=== PATIENT | male | born 1955 | race Caucasian/White ===

== ENCOUNTER → 2019-03-17 | Outpatient (CLI) | payer BC ==
--- NOTE | 2019-03-17 20:53 | CONS ---
CONSULTATION REASON FOR EVALUATION: Sleep apnea. 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 The patient was found to have a increased risk of sleep apnea with a Stop Bang score of 4. For that reason, he was referred to me. Clinically he feels well. No hypersomnia or sleepiness. He has minimal snoring. He goes to bed around 10:30 p.m., wakes up 7:00 am in the morning. No major hypersomnia or sleepiness during the day. He is a smoker. No history of substance abuse. No recent weight gain. No dry mouth. No grinding of the teeth. No restlessness on lower extremities. No issues with memory or concentration. No issues with falling asleep while driving and he has never fallen asleep behind the wheel. No history of any motor vehicle accidents because of feeling drowsy or sleepy. PAST MEDICAL HISTORY: Negative. PAST SURGICAL HISTORY: Appendectomy in 1964. DRUG ALLERGIES: Not known. MEDICATIONS: None. SOCIAL HISTORY: Patient is a smoker 40 pack years. No history of alcohol. No history of IV drugs. FAMILY HISTORY: Negative for sleep apnea. REVIEW OF SYSTEMS: Fourteen-point review of system was done. Positive findings are mentioned above in the history of present illness. Otherwise negative. PHYSICAL EXAMINATION: BP is 144/75, pulse 68, respirations 16, temperature 97.9, saturation 97% on room air. Height is 5 feet, 10 inches, weight is 225, BMI 32.2. Neck size 16.5 inches. General appearance: Calm and comfortable. Head is atraumatic, normocephalic. NECK: Supple. There is no JVD. No goiter or neck masses. Mallampati class 2-3. LUNGS: Clear to auscultation. HEART: Sounds regular rate and rhythm. Normal S1/S2. No murmurs. ABDOMEN: Soft, nontender. No organomegaly. EXTREMITIES: No edema. No cyanosis or clubbing. NEUROLOGIC: The patient alert x3. No focal neurological deficits. PSYCHIATRIC: Negative for anxiety or depression. Skin is negative for any wounds or ulceration. IMPRESSION: 1. Mild snoring. 2. Positive sleep apnea screen with a Stop Bang score of 4. 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 4. Chronic smoker. PLAN: 1. Encourage weight loss. 2. Overall suspicion for obstructive sleep apnea is quite low. The patient is asymptomatic. We will proceed with a home sleep study to rule out obstructive sleep apnea. 3. Further recommendations will be done accordingly. RIGO / PUNEET: [id number] /
== END ==
LOC: SLEEP 14:07
PROVIDERS: ATTEND Internal Medicine Critical Care Medicine
DX: G47.30 Sleep apnea, unspecified (principal); R06.83 Snoring; F17.200 Nicotine dependence, unspecified, uncomplicated
CPT/HCPCS: 99211

== ENCOUNTER → 2019-08-11 | Outpatient (CLI) | payer BC ==
--- NOTE | 2019-08-11 16:30 | PN ---
PROGRESS NOTE This is a 64-year-old male patient coming in for a compliancy check regarding his obstructive sleep apnea. 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 The patient was found to have an AHI of 20, worse in the supine body position with an AHI of 30. Based on that, the patient was given CPAP titration. He was titrated to a CPAP pressure of 10 cm of water. On today's evaluation the patient feels better. His sleep quality is improved. His main complaint is the bills that he has gotten from [facility] regarding the sleep study. For the most part the treatment has been successful. He is utilizing his CPAP machine on average 8 hours and 32 minutes per night. His AHI is down to 0.3. His leak factor is 11.8 L/minute. He is averaging more than 8 hours per night of CPAP use and his CPAP use for more than 4 hours is 97%. On today's evaluation he is using a Mirage FX nose mask. I switched him to an AirFit N30I nose mask, which seems to be much more comfortable, and the patient was sized to a small-sized nose mask. This is something that he would like to use in the future based on the increased comfort level that he experienced with this mask. REVIEW OF SYSTEMS: Fourteen-point review of systems was done. Negative other than things mentioned above. In general he is much more alert and awake during the day. He is responding to the treatment. His Troutdale score is down to 2. No snoring while on CPAP therapy, and his has completely subsided. No nasal dryness. No oral dryness. No leaks from his mouth. No nighttime chest pain, shortness of breath, gasping for air or choking sensation. No morning headaches. No altered mentation. No episodes of falling asleep while driving his truck. PHYSICAL EXAMINATION: CURRENT VITAL SIGNS: His blood pressure is 170/83, pulse 83, respirations 16, temperature 97.0. Saturation is 97% on room air. Troutdale score is 2. Weight is 225. GENERAL APPEARANCE: Calm, comfortable. HEAD: Atraumatic, normocephalic. NECK: Supple. No JVD. No goiter or neck mass. Mallampati class IV. LUNGS: Clear to auscultation. HEART: Heart sounds are regular rate and rhythm. Normal S1, S2. No S3, S4. No murmurs. ABDOMEN: Soft, nontender. No organomegaly. EXTREMITIES: No edema. No cyanosis or clubbing. Neurologically the patient is alert and oriented x3. There are no focal neurological deficits. Psychiatrically, negative for anxiety or depression. IMPRESSION: 1. Obstructive sleep apnea, moderately severe, worse in the supine body position. Current AHI is 20 and the patient is receiving CPAP therapy at a pressure of 10. 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 3. Hypersomnia, improved. Troutdale score is down to 2. PLAN: The patient is benefiting from the treatment. The patient is compliant. Continue CPAP therapy at same level of pressure. Continue using the CPAP. I offered him an AirFit N30I small-sized [id number] mask. Will optimize sleep hygiene measures. Continue treatment. No risk for this patient to fall asleep while driving, at least from the sleep apnea standpoint, which has been adequately treated. His DOT certification has been renewed. Encourage weight loss. See me back in a year's time in followup. MMODL / IJN: [id number] /
== END | disposition home or self-care (01) ==
LOC: SLEEP 14:39
PROVIDERS: ATTEND Internal Medicine Critical Care Medicine
DX: G47.33 Obstructive sleep apnea (adult) (pediatric) (principal)

== ENCOUNTER 2021-03-27 00:17 | Emergency (ER) | payer BC, MEDICARE ==
[2021-03-27 00:32] VITALS: BP 160/82; PULSE 77; RESP 18; TEMP 98
--- NOTE | 2021-03-27 00:38 | ED ---
Fall HPI - General Chief Complaint: Neck Pain/Injury Stated Complaint: Back injury Time Seen by Provider: 03/27/21 00:37 Source: patient, family Mode of arrival: ambulatory - Related Data Allergies Allergy/AdvReac Type Severity Reaction Status Date / Time No Known Allergies Allergy Verified 03/27/21 00:32 Review of Systems ROS Statement: Those systems with pertinent positive or pertinent negative responses have been documented in the HPI. ROS Other: All systems not noted in ROS Statement are negative. Past Medical History Past Medical History: No Reported History History of Any Multi-Drug Resistant Organisms: None Reported Past Surgical History: Appendectomy Past Psychological History: No Psychological Hx Reported Smoking Status: Current every day smoker Past Alcohol Use History: Occasional Past Drug Use History: None Reported General Exam Limitations: no limitations Course Vital Signs 03/27/21 00:24 Temperature 98.0 F Pulse Rate 77 Respiratory 18 Rate Blood Pressure 160/82 O2 Sat by Pulse 98 Oximetry Disposition Clinical Impression: Compression fx, lumbar spine Disposition: HOME SELF-CARE Condition: Good Instructions (If sedation given, give patient instructions): Thoracolumbar Fracture (ED) Is patient prescribed a controlled substance at d/c from ED?: No Referrals: Samantha Mondragon MD [Primary Care Provider] - 1-2 days Ramona Capps DO [Doctor of Osteopathic Medicine] - 1-2 days
--- NOTE | 2021-03-27 01:17 | XR ---
EXAM: XR Lumbosacral Spine, 4 or 5 Views CLINICAL HISTORY: ITS.REASON XR Reason: fall TECHNIQUE: Frontal, lateral and oblique views of the lumbar spine. COMPARISON: No relevant prior studies available. FINDINGS: Vertebrae: Age-indeterminate compression deformity of the anterior column of L1 with mild height loss. Normal alignment. Sacrum/coccyx: Unremarkable as visualized. No acute fracture. Disc spaces: Multilevel degenerative changes of the lumbar spine. Soft tissues: Unremarkable. Vasculature: Vascular calcifications. IMPRESSION: Age-indeterminate compression deformity of the anterior column of L1 with mild height loss.
--- NOTE | 2021-03-27 01:18 | XR ---
EXAM: XR Chest, 1 View CLINICAL HISTORY: Fall TECHNIQUE: Frontal view of the chest. COMPARISON: No relevant prior studies available. FINDINGS: Lungs: Lungs are clear. Suspected nipple shadow overlying the left lower lung base versus pulmonary nodule measured 10 mm. Pleural space: Unremarkable. Heart: Unremarkable. Mediastinum: Unremarkable. Bones/joints: Unremarkable. IMPRESSION: No acute findings.
[2021-03-27] MEDS ORDERED: traMADol 50 MG STARTER PACK 3 TAB BTL PO STA (01:32)
[2021-03-27] MEDS ORDERED: ACET/COD 300 MG/30 MG STARTER PACK 6 TAB BTL PO STA (01:32)
[2021-03-27] MEDS ORDERED: IBUPROFEN 600 MG STARTER PACK 4 TAB BTL PO STA (01:32)
== END 2021-03-27 01:43 | disposition home or self-care (01) ==
LOC: EC 00:17
DX: S32.010A Wedge compression fracture of first lumbar vertebra, initial encounter for closed fracture (principal); F17.200 Nicotine dependence, unspecified, uncomplicated; W11.XXXA Fall on and from ladder, initial encounter
CPT/HCPCS: 71045; 72110; 99284